=== PATIENT | male | born 1950 | race Caucasian/White ===

== ENCOUNTER 2022-11-30 17:21 | Emergency (ER) | payer OTHER ==
[~2022-11-30] VITALS: Ht 193 cm; Wt 113.6 kg
[2022-11-30 20:29] VITALS: BP 162/95
== END 2022-11-30 20:30 | disposition home or self-care (01) ==
LOC: ER 17:24
DX: I10 Essential (primary) hypertension (principal); I11.9 Hypertensive heart disease without heart failure; Z79.899 Other long term (current) drug therapy
CPT/HCPCS: 99281